=== PATIENT | female | born 1955 | race Hispanic/Latino ===

== ENCOUNTER 2020-10-27 10:37 | Inpatient (IN) | payer OTHER ==
[~2020-10-27] VITALS: Ht 160 cm; Wt 89.9 kg
[2020-10-27] MEDS ORDERED: SODIUM CHLORIDE 0.9% 1000ML 1,000 ML IV STA (11:34)
[2020-10-27] MEDS ORDERED: VANCOMYCIN 1GM/NS 250 ML 250 ML IV ONE (11:45)
[2020-10-27] MEDS ORDERED: PIPERACILLIN/TAZOBAC 3.375 GM in SODIUM CHLORIDE 0.9% 50ML 50 ML IV ONE (11:45)
[2020-10-27 11:47] LABS: BASOPHILS % 0.3 % (0.0-1.0); EOSINOPHILS % 0.2 % (0.0-6.0); HEMATOCRIT 26.4 % (34.2-44.1); HEMOGLOBIN 8.6 g/dL (12.0-16.0); LYMPHOCYTES # (AUTO) 0.8 (1.0-3.2); LYMPHOCYTES % 13.8 % (18.0-39.1); MEAN CORPUSCULAR HEMOGLOBIN 27.7 pg (28-32); MEAN CORPUSCULAR HGB CONC 32.6 g/dL (31-35); MEAN CORPUSCULAR VOLUME 84.9 fL (81-99); MONOCYTES # (AUTO) 0.4 (0.2-0.8); NEUTROPHILS # (AUTO) 4.6 (2.1-6.9); NEUTROPHILS % 78.4 % (38.7-80.0); PLATELET COUNT 186 x10e3/uL (140-360); RED BLOOD COUNT 3.11 x10e6/uL (3.6-5.1); RED CELL DISTRIBUTION WIDTH 13.9 % (11.7-14.4)
[2020-10-27 11:51] LABS: INR 1.21
[2020-10-27 12:00] LABS: ALANINE AMINOTRANSFERASE 28 IU/L (0-55); ALBUMIN 2.9 g/dL (3.5-5.0); ALBUMIN/GLOBULIN RATIO 0.6 (0.8-2.0); ALKALINE PHOSPHATASE 68 IU/L (40-150); ANION GAP 15.6 mmol/L (8-16); BLOOD UREA NITROGEN 12 mg/dL (7-26); BUN/CREATININE RATIO 17 (6-25); CARBON DIOXIDE 22 mmol/L (22-29); CHLORIDE 99 mmol/L (98-107); CREATINE KINASE 32 IU/L (29-168); CREATININE, SERUM 0.72 mg/dL (0.57-1.11); EST GLOMERULAR FILTRATION RATE > 60 ML/MIN (60-); GLUCOSE 190 mg/dL (74-118); MAGNESIUM 1.7 MG/DL (1.3-2.1); POTASSIUM 3.6 mmol/L (3.5-5.1); SODIUM 133 mmol/L (136-145)
[2020-10-27 12:13] LABS: B-TYPE NATRIURETIC PEPTIDE2 200.5 pg/mL (0-100)
[2020-10-27 12:20] LABS: CLARITY,URINE CLOUDY (CLEAR); COLOR,URINE YELLOW (YELLOW); LEUKOCYTE ESTERASE ,URINE TRACE (NEGATIVE); NITRITE,URINE NEGATIVE (NEGATIVE); PROTEIN,URINE DIPSTICK >=300 (NEGATIVE)
[2020-10-27 12:21] LABS: KETONES,URINE 1+ (NEGATIVE)
[2020-10-27 12:27] LABS: BACTERIA,URINE RARE /HPF; EPITHELIAL CELLS,URINE FEW /LPF
[2020-10-27] MEDS ORDERED: ONDANSETRON HCL INJ 2MG/ML 2ML 2 MG/ML VIAL IV STA (13:02)
[2020-10-27] MEDS ORDERED: MORPHINE SULFATE INJ 4 MG/ML INJ 1ML IV STA (13:02)
[2020-10-27] MEDS ORDERED: MORPHINE SULFATE INJ 4 MG/ML INJ 1ML ONE (13:18)
[2020-10-27] MEDS ORDERED: DEXTROSE 50% SYRINGE 50 ML IV PRN (13:30)
[2020-10-27 14:15] LABS: FREE THYROXINE INDEX 2.4702 (1.4-3.8); THYROID STIMULATING HORMONE 0.383 uIU/mL (0.350-4.940)
[2020-10-27] MEDS ORDERED: GLUCOPHAGE500 MG PO (15:33)
[2020-10-27 16:15] VITALS: BP 159/83
[2020-10-27] MEDS: SODIUM CHLORIDE 0.9% 1000ML 1,000 ML IV SCH (17:02)
[2020-10-27] MEDS: ONDANSETRON HCL INJ 2MG/ML 2ML 2 MG/ML VIAL IV PRN (17:08)
[2020-10-27] MEDS: PIPERACILLIN/TAZOBAC 3.375 GM in SODIUM CHLORIDE 0.9% 50ML 50 ML IV SCH ×2 (17:10→23:24)
[2020-10-27] MEDS ORDERED: PIPERACILLIN/TAZOBAC 3.375 GM VIAL ONE ×2 (17:14→23:25)
[2020-10-27] MEDS: INSULIN LISPRO 100 UNIT/1 ML 3ML VIAL SQ SCH ×2 (17:15→19:52)
[2020-10-27] MEDS ORDERED: SODIUM CHLORIDE 0.9% 50ML 50 ML ONE ×2 (17:15→23:25)
[2020-10-27] MEDS ORDERED: FUROSEMIDE INJ 10 MG/ML 2 ML VIAL IV ONE (18:30)
[2020-10-27] MEDS: IPRATROPIUM BROMIDE 0.02% 2.5 ML NEB NEB SCH (19:00)
[2020-10-27] MEDS: ACETAMINOPHEN 325 MG TAB PO PRN (19:25)
[2020-10-27 19:35] VITALS: BP 151/84
[2020-10-27 19:50] VITALS: BP 151/84
[2020-10-27] MEDS: ZOLPIDEM TARTRATE 5 MG TAB PO PRN (21:27)
[2020-10-27 21:59] LABS: CREATINE KINASE MB 0.3 ng/mL (0-5.0)
[2020-10-28] VITALS (8 sets, daily range): BP systolic 120–149; BP diastolic 70–101
[2020-10-28] MEDS: IPRATROPIUM BROMIDE 0.02% 2.5 ML NEB NEB SCH ×4 (01:05→19:00)
[2020-10-28] MEDS: SODIUM CHLORIDE 0.9% 1000ML 1,000 ML IV SCH ×2 (04:37→13:59)
[2020-10-28] MEDS ORDERED: SODIUM CHLORIDE 0.9% 50ML 50 ML ONE ×5 (05:23→23:35)
[2020-10-28] MEDS ORDERED: IOPAMIDOL 370 MG/ML 200 ML INFUS..BTL INJ ONE (05:23)
[2020-10-28] MEDS ORDERED: PIPERACILLIN/TAZOBAC 3.375 GM VIAL ONE ×4 (05:28→23:35)
[2020-10-28] MEDS: ACETAMINOPHEN 325 MG TAB PO PRN (05:33)
[2020-10-28] MEDS: PIPERACILLIN/TAZOBAC 3.375 GM in SODIUM CHLORIDE 0.9% 50ML 50 ML IV SCH ×4 (05:33→23:33)
[2020-10-28] MEDS: ONDANSETRON HCL INJ 2MG/ML 2ML 2 MG/ML VIAL IV PRN ×2 (05:40→16:44)
[2020-10-28 05:59] LABS: BASOPHILS % 0.3 % (0.0-1.0); HEMATOCRIT 23.1 % (34.2-44.1); HEMOGLOBIN 7.4 g/dL (12.0-16.0); LYMPHOCYTES # (AUTO) 0.7 (1.0-3.2); MEAN CORPUSCULAR HEMOGLOBIN 27.3 pg (28-32); MEAN CORPUSCULAR VOLUME 85.2 fL (81-99); MONOCYTES # (AUTO) 0.7 (0.2-0.8); MONOCYTES % 10.1 % (4.4-11.3); NEUTROPHILS # (AUTO) 5.1 (2.1-6.9); PLATELET COUNT 162 x10e3/uL (140-360); RED BLOOD COUNT 2.71 x10e6/uL (3.6-5.1); RED CELL DISTRIBUTION WIDTH 14.1 % (11.7-14.4)
[2020-10-28 06:52] LABS: ALANINE AMINOTRANSFERASE 27 IU/L (0-55); ALBUMIN 2.5 g/dL (3.5-5.0); ALBUMIN/GLOBULIN RATIO 0.5 (0.8-2.0); ALKALINE PHOSPHATASE 70 IU/L (40-150); ANION GAP 14.2 mmol/L (8-16); BLOOD UREA NITROGEN 11 mg/dL (7-26); BUN/CREATININE RATIO 13 (6-25); CALCIUM 7.4 mg/dL (8.4-10.2); CARBON DIOXIDE 22 mmol/L (22-29); CHLORIDE 98 mmol/L (98-107); CREATININE, SERUM 0.85 mg/dL (0.57-1.11); EST GLOMERULAR FILTRATION RATE > 60 ML/MIN (60-); GLUCOSE 141 mg/dL (74-118); POTASSIUM 3.2 mmol/L (3.5-5.1); SODIUM 131 mmol/L (136-145)
[2020-10-28 07:16] LABS: CREATINE KINASE MB 0.4 ng/mL (0-5.0)
[2020-10-28] MEDS: INSULIN LISPRO 100 UNIT/1 ML 3ML VIAL SQ SCH ×4 (08:30→20:06)
[2020-10-28] MEDS ORDERED: VANCOMYCIN 1GM/NS 250 ML 250 ML IV SCH (13:00)
[2020-10-28 15:36] LABS: CREATINE KINASE MB 0.5 ng/mL (0-5.0)
[2020-10-28 18:57] LABS: % IRON SATURATION 4 % (15-50); IRON 11 ug/dL (50-170); TOTAL IRON BINDING CAPACITY 245 ug/dL (261-478); TRANSFERRIN 175 mg/dL (180-382)
[2020-10-28] MEDS: ZOLPIDEM TARTRATE 5 MG TAB PO PRN (20:09)
[2020-10-29] VITALS (8 sets, daily range): BP systolic 120–162; BP diastolic 70–89
[2020-10-29] MEDS: IPRATROPIUM BROMIDE 0.02% 2.5 ML NEB NEB SCH ×4 (01:00→20:37)
[2020-10-29] MEDS ORDERED: PIPERACILLIN/TAZOBAC 3.375 GM VIAL ONE ×4 (05:17→22:34)
[2020-10-29] MEDS ORDERED: SODIUM CHLORIDE 0.9% 50ML 50 ML ONE ×4 (05:18→22:34)
[2020-10-29] MEDS: PIPERACILLIN/TAZOBAC 3.375 GM in SODIUM CHLORIDE 0.9% 50ML 50 ML IV SCH ×3 (05:37→17:28)
[2020-10-29 05:50] LABS: BLOOD UREA NITROGEN 14 mg/dL (7-26); BUN/CREATININE RATIO 17 (6-25); CALCIUM 7.2 mg/dL (8.4-10.2); CARBON DIOXIDE 21 mmol/L (22-29); CHLORIDE 99 mmol/L (98-107); CREATININE, SERUM 0.84 mg/dL (0.57-1.11); EST GLOMERULAR FILTRATION RATE > 60 ML/MIN (60-); GLUCOSE 77 mg/dL (74-118); SODIUM 133 mmol/L (136-145)
[2020-10-29 06:54] LABS: BASOPHILS % 0.2 % (0.0-1.0); EOSINOPHILS % 0.4 % (0.0-6.0); LYMPHOCYTES # (AUTO) 1.1 (1.0-3.2); LYMPHOCYTES % 13.7 % (18.0-39.1); MEAN CORPUSCULAR HGB CONC 32.5 g/dL (31-35); MEAN CORPUSCULAR VOLUME 86.2 fL (81-99); MONOCYTES # (AUTO) 0.9 (0.2-0.8); MONOCYTES % 10.5 % (4.4-11.3); NEUTROPHILS # (AUTO) 6.2 (2.1-6.9); NEUTROPHILS % 74.6 % (38.7-80.0); PLATELET COUNT 158 x10e3/uL (140-360); RED BLOOD COUNT 2.39 x10e6/uL (3.6-5.1); RED CELL DISTRIBUTION WIDTH 14.1 % (11.7-14.4)
[2020-10-29 07:14] LABS: HEMATOCRIT 20.6 % (34.2-44.1); HEMOGLOBIN 6.7 g/dL (12.0-16.0)
[2020-10-29] MEDS ORDERED: POTASSIUM CHLORIDE 20 MEQ TAB CR PO ONE (07:25)
[2020-10-29] MEDS: INSULIN LISPRO 100 UNIT/1 ML 3ML VIAL SQ SCH ×4 (07:26→20:10)
[2020-10-29] MEDS ORDERED: FUROSEMIDE INJ 10 MG/ML 2 ML VIAL IV ONE ×2 (07:35→21:00)
[2020-10-29] MEDS ORDERED: SODIUM CHLORIDE 0.9% 250ML 250 ML IV ONE (08:00)
[2020-10-29] MEDS: IRON SUCROSE 100 MG in SODIUM CHLORIDE 0.9% 100 ML 100 ML IV SCH (09:14)
[2020-10-29] MEDS: VANCOMYCIN 1GM/NS 250 ML 250 ML IV SCH (15:01)
[2020-10-29] MEDS: ACETAMINOPHEN 325 MG TAB PO PRN (17:15)
[2020-10-29] MEDS ORDERED: SODIUM CHLORIDE 0.9% 250ML 250 ML ONE (17:18)
[2020-10-30] VITALS (8 sets, daily range): BP systolic 127–149; BP diastolic 63–88
[2020-10-30] MEDS: IPRATROPIUM BROMIDE 0.02% 2.5 ML NEB NEB SCH ×4 (01:00→19:00)
[2020-10-30] MEDS: PIPERACILLIN/TAZOBAC 3.375 GM in SODIUM CHLORIDE 0.9% 50ML 50 ML IV SCH ×5 (01:14→23:35)
[2020-10-30] MEDS: PANTOPRAZOLE 40 MG 10ML VIAL IV SCH ×3 (01:51→23:35)
[2020-10-30] MEDS ORDERED: PIPERACILLIN/TAZOBAC 3.375 GM VIAL ONE ×4 (04:28→23:24)
[2020-10-30] MEDS ORDERED: SODIUM CHLORIDE 0.9% 50ML 50 ML ONE ×6 (04:29→23:25)
[2020-10-30 05:15] LABS: BASOPHILS % 0.3 % (0.0-1.0); EOSINOPHILS # (AUTO) 0.1 (0.0-0.4); EOSINOPHILS % 1.5 % (0.0-6.0); HEMATOCRIT 23.3 % (34.2-44.1); HEMOGLOBIN 7.7 g/dL (12.0-16.0); LYMPHOCYTES % 16.6 % (18.0-39.1); MEAN CORPUSCULAR HEMOGLOBIN 27.9 pg (28-32); MEAN CORPUSCULAR VOLUME 84.4 fL (81-99); MONOCYTES # (AUTO) 0.4 (0.2-0.8); MONOCYTES % 7.3 % (4.4-11.3); NEUTROPHILS # (AUTO) 4.4 (2.1-6.9); NEUTROPHILS % 73.6 % (38.7-80.0); PLATELET COUNT 163 x10e3/uL (140-360); RED BLOOD COUNT 2.76 x10e6/uL (3.6-5.1); RED CELL DISTRIBUTION WIDTH 14.1 % (11.7-14.4)
[2020-10-30 05:47] LABS: ANION GAP 14.2 mmol/L (8-16); BLOOD UREA NITROGEN 16 mg/dL (7-26); BUN/CREATININE RATIO 20 (6-25); CALCIUM 7.1 mg/dL (8.4-10.2); CARBON DIOXIDE 23 mmol/L (22-29); CHLORIDE 99 mmol/L (98-107); CREATININE, SERUM 0.79 mg/dL (0.57-1.11); EST GLOMERULAR FILTRATION RATE > 60 ML/MIN (60-); GLUCOSE 119 mg/dL (74-118); POTASSIUM 3.2 mmol/L (3.5-5.1); SODIUM 133 mmol/L (136-145)
[2020-10-30] MEDS: BENZONATATE 100 MG CAP PO PRN (06:40)
[2020-10-30] MEDS ORDERED: POTASSIUM CHLORIDE 20 MEQ TAB CR PO ONE (07:45)
[2020-10-30 07:50] LABS: CHOL/HDL RATIO 7.4 (3.0-3.6)
[2020-10-30] MEDS: INSULIN LISPRO 100 UNIT/1 ML 3ML VIAL SQ SCH ×4 (08:00→20:26)
[2020-10-30] MEDS: IRON SUCROSE 100 MG in SODIUM CHLORIDE 0.9% 100 ML 100 ML IV SCH (09:11)
[2020-10-30] MEDS: VANCOMYCIN 1GM/NS 250 ML 250 ML IV SCH (14:32)
[2020-10-30] MEDS: ACETAMINOPHEN 325 MG TAB PO PRN (19:28)
[2020-10-30] MEDS: ZOLPIDEM TARTRATE 5 MG TAB PO PRN (20:34)
[2020-10-30] MEDS: APIXABAN 5 MG TABLET PO SCH (22:06)
[2020-10-31] VITALS (8 sets, daily range): BP systolic 125–168; BP diastolic 59–91
[2020-10-31] MEDS: IPRATROPIUM BROMIDE 0.02% 2.5 ML NEB NEB SCH ×4 (01:00→19:30)
[2020-10-31] MEDS: ACETAMINOPHEN 325 MG TAB PO PRN (04:00)
[2020-10-31] MEDS ORDERED: PIPERACILLIN/TAZOBAC 3.375 GM VIAL ONE ×4 (04:50→23:54)
[2020-10-31] MEDS ORDERED: SODIUM CHLORIDE 0.9% 50ML 50 ML ONE ×4 (04:50→23:54)
[2020-10-31 05:06] LABS: BASOPHILS % 0.4 % (0.0-1.0); EOSINOPHILS # (AUTO) 0.1 (0.0-0.4); EOSINOPHILS % 2.1 % (0.0-6.0); HEMATOCRIT 24.1 % (34.2-44.1); HEMOGLOBIN 7.7 g/dL (12.0-16.0); LYMPHOCYTES % 18.9 % (18.0-39.1); MEAN CORPUSCULAR HEMOGLOBIN 27.3 pg (28-32); MEAN CORPUSCULAR VOLUME 85.5 fL (81-99); MONOCYTES # (AUTO) 0.4 (0.2-0.8); MONOCYTES % 7.3 % (4.4-11.3); NEUTROPHILS # (AUTO) 3.7 (2.1-6.9); NEUTROPHILS % 70.3 % (38.7-80.0); PLATELET COUNT 164 x10e3/uL (140-360); RED BLOOD COUNT 2.82 x10e6/uL (3.6-5.1); RED CELL DISTRIBUTION WIDTH 14.5 % (11.7-14.4)
[2020-10-31] MEDS: PIPERACILLIN/TAZOBAC 3.375 GM in SODIUM CHLORIDE 0.9% 50ML 50 ML IV SCH ×3 (05:22→18:08)
[2020-10-31 05:34] LABS: ALANINE AMINOTRANSFERASE 31 IU/L (0-55); ALBUMIN 2.1 g/dL (3.5-5.0); ALBUMIN/GLOBULIN RATIO 0.5 (0.8-2.0); ALKALINE PHOSPHATASE 105 IU/L (40-150); ANION GAP 13.8 mmol/L (8-16); BLOOD UREA NITROGEN 16 mg/dL (7-26); BUN/CREATININE RATIO 20 (6-25); CALCIUM 7.5 mg/dL (8.4-10.2); CARBON DIOXIDE 22 mmol/L (22-29); CHLORIDE 100 mmol/L (98-107); CREATININE, SERUM 0.81 mg/dL (0.57-1.11); EST GLOMERULAR FILTRATION RATE > 60 ML/MIN (60-); GLUCOSE 148 mg/dL (74-118); POTASSIUM 3.8 mmol/L (3.5-5.1); SODIUM 132 mmol/L (136-145)
[2020-10-31] MEDS: INSULIN LISPRO 100 UNIT/1 ML 3ML VIAL SQ SCH ×4 (08:30→21:00)
[2020-10-31] MEDS: APIXABAN 5 MG TABLET PO SCH (08:39)
[2020-10-31] MEDS: IRON SUCROSE 100 MG in SODIUM CHLORIDE 0.9% 100 ML 100 ML IV SCH (08:47)
[2020-10-31] MEDS: DRONEDARONE 400 MG TAB PO SCH ×2 (12:04→16:44)
[2020-10-31] MEDS: METOPROLOL TARTRATE 25 MG TAB PO SCH ×2 (12:05→21:24)
[2020-10-31] MEDS: PANTOPRAZOLE 40 MG 10ML VIAL IV SCH (12:13)
[2020-10-31] MEDS: BALSAM PERU/CASTOR OIL 60 GM OINT...G. TP SCH (14:37)
[2020-10-31] MEDS: VANCOMYCIN 1GM/NS 250 ML 250 ML IV SCH (15:59)
[2020-11-01] VITALS (7 sets, daily range): BP systolic 120–152; BP diastolic 62–79
[2020-11-01] MEDS: PANTOPRAZOLE 40 MG 10ML VIAL IV SCH ×2 (01:30→15:41)
[2020-11-01] MEDS: IPRATROPIUM BROMIDE 0.02% 2.5 ML NEB NEB SCH ×4 (01:30→19:00)
[2020-11-01] MEDS ORDERED: PIPERACILLIN/TAZOBAC 3.375 GM VIAL ONE ×4 (04:37→21:59)
[2020-11-01] MEDS ORDERED: SODIUM CHLORIDE 0.9% 50ML 50 ML ONE ×4 (04:37→22:00)
[2020-11-01] MEDS: METOPROLOL TARTRATE 25 MG TAB PO SCH ×3 (04:50→21:01)
[2020-11-01] MEDS: PIPERACILLIN/TAZOBAC 3.375 GM in SODIUM CHLORIDE 0.9% 50ML 50 ML IV SCH ×6 (04:50→23:20)
[2020-11-01 07:03] LABS: BASOPHILS % 0.6 % (0.0-1.0); EOSINOPHILS # (AUTO) 0.1 (0.0-0.4); EOSINOPHILS % 1.7 % (0.0-6.0); HEMATOCRIT 23.9 % (34.2-44.1); HEMOGLOBIN 7.6 g/dL (12.0-16.0); LYMPHOCYTES # (AUTO) 1.3 (1.0-3.2); LYMPHOCYTES % 23.8 % (18.0-39.1); MEAN CORPUSCULAR HEMOGLOBIN 27.3 pg (28-32); MEAN CORPUSCULAR HGB CONC 31.8 g/dL (31-35); MONOCYTES # (AUTO) 0.4 (0.2-0.8); MONOCYTES % 7.7 % (4.4-11.3); NEUTROPHILS # (AUTO) 3.5 (2.1-6.9); NEUTROPHILS % 64.9 % (38.7-80.0); PLATELET COUNT 212 x10e3/uL (140-360); RED BLOOD COUNT 2.78 x10e6/uL (3.6-5.1); RED CELL DISTRIBUTION WIDTH 14.5 % (11.7-14.4)
[2020-11-01] MEDS: INSULIN LISPRO 100 UNIT/1 ML 3ML VIAL SQ SCH ×4 (07:30→20:53)
[2020-11-01 07:33] LABS: ALANINE AMINOTRANSFERASE 32 IU/L (0-55); ALBUMIN 2.1 g/dL (3.5-5.0); ALBUMIN/GLOBULIN RATIO 0.4 (0.8-2.0); ALKALINE PHOSPHATASE 121 IU/L (40-150); ANION GAP 15.7 mmol/L (8-16); BLOOD UREA NITROGEN 16 mg/dL (7-26); BUN/CREATININE RATIO 18 (6-25); CALCIUM 7.5 mg/dL (8.4-10.2); CARBON DIOXIDE 23 mmol/L (22-29); CHLORIDE 101 mmol/L (98-107); EST GLOMERULAR FILTRATION RATE > 60 ML/MIN (60-); GLUCOSE 146 mg/dL (74-118); POTASSIUM 3.7 mmol/L (3.5-5.1); SODIUM 136 mmol/L (136-145)
[2020-11-01 07:59] LABS: EOSINOPHILS % (MANUAL) 4 % (0-7); LYMPHOCYTES % (MANUAL) 18 % (19-48); METAMYELOCYTES % (MANUAL) 1 % (0-0); MONOCYTES % (MANUAL) 8 % (3.4-9.0); NEUTROPHILS % (MANUAL) 68 % (40-74); PLATELET ESTIMATE ADEQUATE; PLATELET MORPHOLOGY COMMENT NORMAL; RBC MORPHOLOGY COMMENT NORMAL
[2020-11-01] MEDS: DRONEDARONE 400 MG TAB PO SCH ×2 (08:00→16:50)
[2020-11-01] MEDS: BALSAM PERU/CASTOR OIL 60 GM OINT...G. TP SCH (09:00)
[2020-11-01] MEDS: IRON SUCROSE 100 MG in SODIUM CHLORIDE 0.9% 100 ML 100 ML IV SCH (09:35)
[2020-11-01] MEDS ORDERED: SODIUM CHLORIDE 0.9% 250ML 250 ML ONE (09:35)
[2020-11-01] MEDS ORDERED: FENTANYL CITRATE/PF 100MCG/2 ML INJ ONE (12:55)
[2020-11-01] MEDS ORDERED: VANCOMYCIN 1GM/NS 250 ML 250 ML IV SCH (13:00)
[2020-11-01] MEDS ORDERED: DEXAMETHASONE SOD PHOS INJ 4 MG/ML VIAL ONE (13:10)
[2020-11-01] MEDS ORDERED: POVIDONE IODINE 0.05% 0.05 % ML PO ONE (13:10)
[2020-11-01] MEDS ORDERED: ONDANSETRON HCL INJ 2MG/ML 2ML 2 MG/ML VIAL ONE (13:10)
[2020-11-01] MEDS ORDERED: PROPOFOL IV EMULSION 10 MG/ML 20 ML VIAL ONE (13:10)
[2020-11-01] MEDS ORDERED: SEVOFLURANE INHAL SOLN 250 ML PEN BTL ONE (13:10)
[2020-11-01] MEDS: ACETAMINOPHEN 325 MG TAB PO PRN (14:42)
[2020-11-01] MEDS: VANCOMYCIN 1GM/NS 250 ML 250 ML IV SCH (16:52)
[2020-11-01] MEDS: HYDROCODONE/APAP 5MG-325MG TAB PO PRN (18:40)
[2020-11-02] VITALS (7 sets, daily range): BP systolic 106–136; BP diastolic 65–76
[2020-11-02] MEDS: IPRATROPIUM BROMIDE 0.02% 2.5 ML NEB NEB SCH ×4 (00:22→19:00)
[2020-11-02] MEDS ORDERED: BISACODYL 5 MG TAB EC PO ONE ×2 (01:00→02:00)
[2020-11-02] MEDS: PANTOPRAZOLE 40 MG 10ML VIAL IV SCH ×2 (01:13→12:13)
[2020-11-02] MEDS ORDERED: PIPERACILLIN/TAZOBAC 3.375 GM VIAL ONE ×4 (04:10→23:58)
[2020-11-02] MEDS ORDERED: SODIUM CHLORIDE 0.9% 50ML 50 ML ONE ×4 (04:10→23:58)
[2020-11-02] MEDS: VANCOMYCIN 1GM/NS 250 ML 250 ML IV SCH ×2 (05:00→16:31)
[2020-11-02] MEDS: METOPROLOL TARTRATE 25 MG TAB PO SCH ×3 (05:34→22:00)
[2020-11-02] MEDS: PIPERACILLIN/TAZOBAC 3.375 GM in SODIUM CHLORIDE 0.9% 50ML 50 ML IV SCH ×3 (06:00→18:28)
[2020-11-02] MEDS ORDERED: CITRATE OF MAGNESIA 300ML BOTTLE PO ONE (08:00)
[2020-11-02] MEDS: BALSAM PERU/CASTOR OIL 60 GM OINT...G. TP SCH (09:00)
[2020-11-02] MEDS: DRONEDARONE 400 MG TAB PO SCH ×2 (09:06→18:28)
[2020-11-02] MEDS: INSULIN LISPRO 100 UNIT/1 ML 3ML VIAL SQ SCH ×4 (09:10→21:00)
[2020-11-02] MEDS: ACETAMINOPHEN 325 MG TAB PO PRN (09:10)
[2020-11-02] MEDS: IRON SUCROSE 100 MG in SODIUM CHLORIDE 0.9% 100 ML 100 ML IV SCH (10:23)
[2020-11-02] MEDS: HYDROCODONE/APAP 5MG-325MG TAB PO PRN (14:35)
[2020-11-03] VITALS (9 sets, daily range): BP systolic 120–177; BP diastolic 54–90
[2020-11-03] MEDS: ACETAMINOPHEN 325 MG TAB PO PRN
[2020-11-03] MEDS: IPRATROPIUM BROMIDE 0.02% 2.5 ML NEB NEB SCH ×4 (01:00→19:00)
[2020-11-03] MEDS: PANTOPRAZOLE 40 MG 10ML VIAL IV SCH ×2 (01:43→13:26)
[2020-11-03] MEDS ORDERED: PIPERACILLIN/TAZOBAC 3.375 GM VIAL ONE (05:13)
[2020-11-03] MEDS ORDERED: SODIUM CHLORIDE 0.9% 50ML 50 ML ONE (05:13)
[2020-11-03] MEDS: VANCOMYCIN 1GM/NS 250 ML 250 ML IV SCH (05:44)
[2020-11-03] MEDS: METOPROLOL TARTRATE 25 MG TAB PO SCH ×3 (05:45→22:26)
[2020-11-03 06:08] LABS: BASOPHILS % 0.6 % (0.0-1.0); EOSINOPHILS # (AUTO) 0.2 (0.0-0.4); EOSINOPHILS % 3.5 % (0.0-6.0); HEMATOCRIT 25.6 % (34.2-44.1); LYMPHOCYTES # (AUTO) 1.7 (1.0-3.2); LYMPHOCYTES % 25.4 % (18.0-39.1); MEAN CORPUSCULAR HEMOGLOBIN 27.7 pg (28-32); MEAN CORPUSCULAR HGB CONC 31.3 g/dL (31-35); MEAN CORPUSCULAR VOLUME 88.6 fL (81-99); MONOCYTES # (AUTO) 0.6 (0.2-0.8); MONOCYTES % 9.6 % (4.4-11.3); NEUTROPHILS # (AUTO) 3.9 (2.1-6.9); NEUTROPHILS % 59.4 % (38.7-80.0); PLATELET COUNT 266 x10e3/uL (140-360); RED BLOOD COUNT 2.89 x10e6/uL (3.6-5.1); RED CELL DISTRIBUTION WIDTH 14.9 % (11.7-14.4)
[2020-11-03] MEDS: PIPERACILLIN/TAZOBAC 3.375 GM in SODIUM CHLORIDE 0.9% 50ML 50 ML IV SCH ×4 (06:24→11:22)
[2020-11-03 06:38] LABS: ALBUMIN 2.2 g/dL (3.5-5.0); ALBUMIN/GLOBULIN RATIO 0.4 (0.8-2.0); CALCIUM 7.9 mg/dL (8.4-10.2); CREATININE, SERUM 0.98 mg/dL (0.57-1.11)
[2020-11-03] MEDS: INSULIN LISPRO 100 UNIT/1 ML 3ML VIAL SQ SCH ×4 (07:30→22:17)
[2020-11-03] MEDS: ONDANSETRON HCL INJ 2MG/ML 2ML 2 MG/ML VIAL IV PRN (08:35)
[2020-11-03] MEDS: DRONEDARONE 400 MG TAB PO SCH ×2 (08:35→16:26)
[2020-11-03] MEDS: BALSAM PERU/CASTOR OIL 60 GM OINT...G. TP SCH (08:35)
[2020-11-03] MEDS: HYDROCODONE/APAP 5MG-325MG TAB PO PRN ×2 (08:36→20:20)
[2020-11-03 08:52] LABS: BAND NEUTROPHILS % (MANUAL) 2 %; EOSINOPHILS % (MANUAL) 2 % (0-7); LYMPHOCYTES % (MANUAL) 16 % (19-48); MONOCYTES % (MANUAL) 6 % (3.4-9.0); NEUTROPHILS % (MANUAL) 74 % (40-74)
[2020-11-03] MEDS: IRON SUCROSE 100 MG in SODIUM CHLORIDE 0.9% 100 ML 100 ML IV SCH (09:53)
[2020-11-03] MEDS: CEFEPIME HCL 1GM 1 GM in SODIUM CHLORIDE 0.9% 50ML 50 ML IV SCH ×2 (13:26→20:20)
[2020-11-03] MEDS ORDERED: CEFEPIME HCL 1 GM VIAL IV SCH (14:00)
[2020-11-04] VITALS (7 sets, daily range): BP systolic 130–180; BP diastolic 73–98
[2020-11-04] MEDS: IPRATROPIUM BROMIDE 0.02% 2.5 ML NEB NEB SCH ×4 (01:00→19:41)
[2020-11-04] MEDS: PANTOPRAZOLE 40 MG 10ML VIAL IV SCH ×2 (01:23→15:13)
[2020-11-04] MEDS: CEFEPIME HCL 1GM 1 GM in SODIUM CHLORIDE 0.9% 50ML 50 ML IV SCH ×3 (05:50→22:22)
[2020-11-04] MEDS: METOPROLOL TARTRATE 25 MG TAB PO SCH ×3 (05:51→22:23)
[2020-11-04] MEDS: INSULIN LISPRO 100 UNIT/1 ML 3ML VIAL SQ SCH ×4 (07:30→23:52)
[2020-11-04] MEDS: BALSAM PERU/CASTOR OIL 60 GM OINT...G. TP SCH (09:38)
[2020-11-04] MEDS: DRONEDARONE 400 MG TAB PO SCH ×2 (09:38→16:11)
[2020-11-04] MEDS: IRON SUCROSE 100 MG in SODIUM CHLORIDE 0.9% 100 ML 100 ML IV SCH (09:38)
[2020-11-04] MEDS ORDERED: CLONIDINE HCL 0.1 MG TAB PO ONE (12:30)
[2020-11-04] MEDS ORDERED: SODIUM CHLORIDE 0.9% 100 ML ONE (17:51)
[2020-11-04] MEDS ORDERED: IOPAMIDOL 370 MG/ML 200 ML INFUS..BTL INJ ONE (17:51)
[2020-11-04] MEDS: ACETAMINOPHEN 325 MG TAB PO PRN (23:51)
[2020-11-05] MEDS: IPRATROPIUM BROMIDE 0.02% 2.5 ML NEB NEB SCH ×4 (01:00→19:40)
[2020-11-05] MEDS: PANTOPRAZOLE 40 MG 10ML VIAL IV SCH ×2 (01:47→14:16)
[2020-11-05 03:58] VITALS: BP 159/77
[2020-11-05 05:08] LABS: BASOPHILS % 0.7 % (0.0-1.0); EOSINOPHILS # (AUTO) 0.1 (0.0-0.4); EOSINOPHILS % 2.2 % (0.0-6.0); HEMATOCRIT 27.3 % (34.2-44.1); HEMOGLOBIN 8.5 g/dL (12.0-16.0); LYMPHOCYTES # (AUTO) 1.2 (1.0-3.2); LYMPHOCYTES % 21.6 % (18.0-39.1); MEAN CORPUSCULAR HEMOGLOBIN 27.2 pg (28-32); MEAN CORPUSCULAR HGB CONC 31.1 g/dL (31-35); MEAN CORPUSCULAR VOLUME 87.5 fL (81-99); MONOCYTES # (AUTO) 0.5 (0.2-0.8); MONOCYTES % 8.4 % (4.4-11.3); NEUTROPHILS # (AUTO) 3.6 (2.1-6.9); NEUTROPHILS % 66.6 % (38.7-80.0); PLATELET COUNT 240 x10e3/uL (140-360); RED BLOOD COUNT 3.12 x10e6/uL (3.6-5.1)
[2020-11-05 05:37] LABS: ANION GAP 13.1 mmol/L (8-16); BLOOD UREA NITROGEN 13 mg/dL (7-26); BUN/CREATININE RATIO 16 (6-25); CALCIUM 8.2 mg/dL (8.4-10.2); CARBON DIOXIDE 23 mmol/L (22-29); CHLORIDE 104 mmol/L (98-107); CREATININE, SERUM 0.81 mg/dL (0.57-1.11); EST GLOMERULAR FILTRATION RATE > 60 ML/MIN (60-); GLUCOSE 138 mg/dL (74-118); POTASSIUM 4.1 mmol/L (3.5-5.1); SODIUM 136 mmol/L (136-145)
[2020-11-05] MEDS: CEFEPIME HCL 1GM 1 GM in SODIUM CHLORIDE 0.9% 50ML 50 ML IV SCH ×3 (06:10→21:42)
[2020-11-05] MEDS: METOPROLOL TARTRATE 25 MG TAB PO SCH ×3 (06:10→16:20)
[2020-11-05] MEDS ORDERED: CHLORASEPTIC SPRAY 177 ML BTL MM PRN (06:30)
[2020-11-05 07:43] VITALS: BP 180/84
[2020-11-05] MEDS: BALSAM PERU/CASTOR OIL 60 GM OINT...G. TP SCH (09:29)
[2020-11-05] MEDS: INSULIN LISPRO 100 UNIT/1 ML 3ML VIAL SQ SCH ×4 (09:29→20:43)
[2020-11-05] MEDS: DRONEDARONE 400 MG TAB PO SCH ×2 (09:29→16:20)
[2020-11-05 11:27] VITALS: BP 147/94
[2020-11-05] MEDS: LOSARTAN POTASSIUM 100 MG TAB PO SCH (12:07)
[2020-11-05 15:35] VITALS: BP 180/85
[2020-11-05 20:28] VITALS: BP 200/86
[2020-11-05 21:00] VITALS: BP 200/86
[2020-11-05] MEDS: CLONIDINE HCL 0.1 MG TAB PO PRN (21:42)
[2020-11-06] MEDS: HYDROCODONE/APAP 5MG-325MG TAB PO PRN (00:55)
[2020-11-06] MEDS: PANTOPRAZOLE 40 MG 10ML VIAL IV SCH ×2 (00:55→14:05)
[2020-11-06] MEDS: IPRATROPIUM BROMIDE 0.02% 2.5 ML NEB NEB SCH ×4 (01:05→19:00)
[2020-11-06] MEDS: CEFEPIME HCL 1GM 1 GM in SODIUM CHLORIDE 0.9% 50ML 50 ML IV SCH ×3 (05:30→21:02)
[2020-11-06] MEDS: METOPROLOL TARTRATE 25 MG TAB PO SCH ×2 (08:13→17:39)
[2020-11-06] MEDS: DRONEDARONE 400 MG TAB PO SCH ×2 (08:13→17:40)
[2020-11-06] MEDS: LOSARTAN POTASSIUM 100 MG TAB PO SCH (08:13)
[2020-11-06] MEDS: INSULIN LISPRO 100 UNIT/1 ML 3ML VIAL SQ SCH ×4 (08:14→20:06)
[2020-11-06] MEDS: BALSAM PERU/CASTOR OIL 60 GM OINT...G. TP SCH (08:19)
[2020-11-06 08:28] VITALS: BP 174/83
[2020-11-06 08:48] VITALS: BP 174/83
[2020-11-06 11:54] VITALS: BP 136/76
[2020-11-06 16:16] VITALS: BP 139/77
[2020-11-06] MEDS: ACETAMINOPHEN 325 MG TAB PO PRN (17:43)
[2020-11-06 20:43] VITALS: BP 151/70
[2020-11-07] MEDS: HYDROCODONE/APAP 5MG-325MG TAB PO PRN ×2 (00:10→21:25)
[2020-11-07] MEDS: PANTOPRAZOLE 40 MG 10ML VIAL IV SCH ×2 (00:40→16:33)
[2020-11-07] MEDS: IPRATROPIUM BROMIDE 0.02% 2.5 ML NEB NEB SCH ×4 (01:00→20:19)
[2020-11-07] MEDS: CLONIDINE HCL 0.1 MG TAB PO PRN ×2 (04:23→21:25)
[2020-11-07] MEDS: CEFEPIME HCL 1GM 1 GM in SODIUM CHLORIDE 0.9% 50ML 50 ML IV SCH ×3 (05:02→21:11)
[2020-11-07] MEDS: INSULIN LISPRO 100 UNIT/1 ML 3ML VIAL SQ SCH ×4 (07:30→21:00)
[2020-11-07] MEDS ORDERED: FUROSEMIDE INJ 10 MG/ML 2 ML VIAL IV ONE (08:00)
[2020-11-07 08:09] VITALS: BP 136/82
[2020-11-07 08:32] VITALS: BP 136/82
[2020-11-07] MEDS: METOPROLOL TARTRATE 25 MG TAB PO SCH ×2 (09:27→16:33)
[2020-11-07] MEDS: LOSARTAN POTASSIUM 100 MG TAB PO SCH (09:27)
[2020-11-07] MEDS: DRONEDARONE 400 MG TAB PO SCH ×2 (09:27→16:33)
[2020-11-07] MEDS: BALSAM PERU/CASTOR OIL 60 GM OINT...G. TP SCH (09:32)
[2020-11-07 11:50] VITALS: BP 185/84
[2020-11-07 15:37] VITALS: BP 152/77
[2020-11-07] MEDS: INSULIN GLARGINE 100 UNITS/ML VIAL SQ SCH (21:00)
[2020-11-07 21:20] VITALS: BP 189/73
[2020-11-08] MEDS: IPRATROPIUM BROMIDE 0.02% 2.5 ML NEB NEB SCH ×4 (01:00→19:45)
[2020-11-08] MEDS: PANTOPRAZOLE 40 MG 10ML VIAL IV SCH ×2 (01:30→13:30)
[2020-11-08] MEDS: CEFEPIME HCL 1GM 1 GM in SODIUM CHLORIDE 0.9% 50ML 50 ML IV SCH ×3 (05:56→22:34)
[2020-11-08] MEDS: INSULIN LISPRO 100 UNIT/1 ML 3ML VIAL SQ SCH ×4 (07:30→22:33)
[2020-11-08 07:50] LABS: BASOPHILS % 0.4 % (0.0-1.0); EOSINOPHILS # (AUTO) 0.2 (0.0-0.4); EOSINOPHILS % 2.9 % (0.0-6.0); HEMATOCRIT 26.9 % (34.2-44.1); HEMOGLOBIN 8.6 g/dL (12.0-16.0); LYMPHOCYTES % 19.5 % (18.0-39.1); MEAN CORPUSCULAR HEMOGLOBIN 27.4 pg (28-32); MEAN CORPUSCULAR VOLUME 85.7 fL (81-99); MONOCYTES # (AUTO) 0.5 (0.2-0.8); MONOCYTES % 8.8 % (4.4-11.3); NEUTROPHILS # (AUTO) 3.6 (2.1-6.9); NEUTROPHILS % 67.8 % (38.7-80.0); PLATELET COUNT 226 x10e3/uL (140-360); RED BLOOD COUNT 3.14 x10e6/uL (3.6-5.1); RED CELL DISTRIBUTION WIDTH 15.3 % (11.7-14.4)
[2020-11-08] MEDS: DRONEDARONE 400 MG TAB PO SCH ×2 (08:00→17:00)
[2020-11-08 08:19] LABS: ANION GAP 15.5 mmol/L (8-16); BLOOD UREA NITROGEN 14 mg/dL (7-26); BUN/CREATININE RATIO 18 (6-25); CALCIUM 8.6 mg/dL (8.4-10.2); CARBON DIOXIDE 25 mmol/L (22-29); CHLORIDE 103 mmol/L (98-107); EST GLOMERULAR FILTRATION RATE > 60 ML/MIN (60-); GLUCOSE 164 mg/dL (74-118); POTASSIUM 3.5 mmol/L (3.5-5.1); SODIUM 140 mmol/L (136-145)
[2020-11-08 08:26] VITALS: BP 179/77
[2020-11-08] MEDS: LOSARTAN POTASSIUM 100 MG TAB PO SCH (09:00)
[2020-11-08] MEDS: METOPROLOL TARTRATE 25 MG TAB PO SCH ×2 (09:00→17:00)
[2020-11-08] MEDS: BALSAM PERU/CASTOR OIL 60 GM OINT...G. TP SCH (09:00)
[2020-11-08] MEDS ORDERED: BUPIVACAINE HCL 0.5% INJ 30 ML VIAL INJ ONE (09:54)
[2020-11-08] MEDS ORDERED: ONDANSETRON HCL INJ 2MG/ML 2ML 2 MG/ML VIAL ONE (12:46)
[2020-11-08] MEDS ORDERED: LIDOCAINE HCL 2% LOCAL INJ 5 ML SDV VIAL INJ ONE (12:46)
[2020-11-08] MEDS ORDERED: SEVOFLURANE INHAL SOLN 250 ML PEN BTL ONE (12:46)
[2020-11-08] MEDS ORDERED: PROPOFOL IV EMULSION 10 MG/ML 20 ML VIAL ONE (12:46)
[2020-11-08] MEDS ORDERED: POVIDONE IODINE 0.05% 0.05 % ML PO ONE (12:46)
[2020-11-08] MEDS ORDERED: DEXAMETHASONE SOD PHOS INJ 4 MG/ML VIAL ONE (12:46)
[2020-11-08 12:48] VITALS: BP 183/82
[2020-11-08] MEDS ORDERED: FENTANYL CITRATE/PF 100MCG/2 ML INJ ONE (13:21)
[2020-11-08] MEDS ORDERED: MIDAZOLAM HCL 2 MG/2 ML VIAL ONE (13:21)
[2020-11-08] MEDS ORDERED: SODIUM CHLORIDE 0.9% 50ML 50 ML ONE (13:53)
[2020-11-08] MEDS: HYDROCODONE/APAP 5MG-325MG TAB PO PRN ×2 (14:35→22:50)
[2020-11-08 15:13] VITALS: BP 172/71
[2020-11-08 16:06] VITALS: BP 179/77
[2020-11-08 20:00] VITALS: BP 153/75
[2020-11-08] MEDS: INSULIN GLARGINE 100 UNITS/ML VIAL SQ SCH (22:34)
[2020-11-09] VITALS (9 sets, daily range): BP systolic 149–186; BP diastolic 66–87
[2020-11-09] MEDS: IPRATROPIUM BROMIDE 0.02% 2.5 ML NEB NEB SCH ×4 (01:02→19:05)
[2020-11-09] MEDS: PANTOPRAZOLE 40 MG 10ML VIAL IV SCH ×2 (02:33→15:00)
[2020-11-09 05:44] LABS: BASOPHILS % 0.3 % (0.0-1.0); EOSINOPHILS # (AUTO) 0.2 (0.0-0.4); EOSINOPHILS % 3.3 % (0.0-6.0); HEMATOCRIT 27.4 % (34.2-44.1); HEMOGLOBIN 8.8 g/dL (12.0-16.0); LYMPHOCYTES # (AUTO) 1.4 (1.0-3.2); LYMPHOCYTES % 21.9 % (18.0-39.1); MEAN CORPUSCULAR HEMOGLOBIN 27.8 pg (28-32); MEAN CORPUSCULAR HGB CONC 32.1 g/dL (31-35); MEAN CORPUSCULAR VOLUME 86.4 fL (81-99); MONOCYTES # (AUTO) 0.6 (0.2-0.8); MONOCYTES % 9.4 % (4.4-11.3); NEUTROPHILS # (AUTO) 4.1 (2.1-6.9); NEUTROPHILS % 64.6 % (38.7-80.0); PLATELET COUNT 231 x10e3/uL (140-360); RED BLOOD COUNT 3.17 x10e6/uL (3.6-5.1)
[2020-11-09] MEDS: CEFEPIME HCL 1GM 1 GM in SODIUM CHLORIDE 0.9% 50ML 50 ML IV SCH ×3 (05:49→22:44)
[2020-11-09 06:00] LABS: ALANINE AMINOTRANSFERASE 11 IU/L (0-55); ALBUMIN 2.3 g/dL (3.5-5.0); ALBUMIN/GLOBULIN RATIO 0.5 (0.8-2.0); ALKALINE PHOSPHATASE 55 IU/L (40-150); ANION GAP 13.7 mmol/L (8-16); BLOOD UREA NITROGEN 18 mg/dL (7-26); BUN/CREATININE RATIO 22 (6-25); CALCIUM 8.4 mg/dL (8.4-10.2); CARBON DIOXIDE 26 mmol/L (22-29); CHLORIDE 104 mmol/L (98-107); CREATININE, SERUM 0.81 mg/dL (0.57-1.11); EST GLOMERULAR FILTRATION RATE > 60 ML/MIN (60-); GLUCOSE 140 mg/dL (74-118); POTASSIUM 3.7 mmol/L (3.5-5.1); SODIUM 140 mmol/L (136-145)
[2020-11-09] MEDS: BENZONATATE 100 MG CAP PO PRN ×3 (06:04→22:45)
[2020-11-09] MEDS: INSULIN LISPRO 100 UNIT/1 ML 3ML VIAL SQ SCH ×4 (07:30→21:00)
[2020-11-09] MEDS: BALSAM PERU/CASTOR OIL 60 GM OINT...G. TP SCH (07:40)
[2020-11-09] MEDS: DRONEDARONE 400 MG TAB PO SCH ×2 (08:00→17:00)
[2020-11-09] MEDS: LOSARTAN POTASSIUM 100 MG TAB PO SCH (08:33)
[2020-11-09] MEDS: METOPROLOL TARTRATE 25 MG TAB PO SCH ×2 (08:33→17:00)
[2020-11-09] MEDS: AMLODIPINE BESYLATE 10 MG TAB PO SCH (15:15)
[2020-11-09] MEDS: HYDROCODONE/APAP 5MG-325MG TAB PO PRN (16:36)
[2020-11-09] MEDS ORDERED: SODIUM CHLORIDE 0.9% 250ML 250 ML ONE (21:17)
[2020-11-09] MEDS: INSULIN GLARGINE 100 UNITS/ML VIAL SQ SCH (23:42)
[2020-11-10] VITALS (9 sets, daily range): BP systolic 129–179; BP diastolic 54–99
[2020-11-10] MEDS: IPRATROPIUM BROMIDE 0.02% 2.5 ML NEB NEB SCH ×4 (01:00→19:55)
[2020-11-10] MEDS: PANTOPRAZOLE 40 MG 10ML VIAL IV SCH ×3 (01:18→23:43)
[2020-11-10] MEDS: ACETAMINOPHEN 325 MG TAB PO PRN ×2 (04:53→23:44)
[2020-11-10] MEDS: CEFEPIME HCL 1GM 1 GM in SODIUM CHLORIDE 0.9% 50ML 50 ML IV SCH ×3 (06:33→21:10)
[2020-11-10] MEDS: INSULIN LISPRO 100 UNIT/1 ML 3ML VIAL SQ SCH ×4 (07:30→21:06)
[2020-11-10] MEDS: DRONEDARONE 400 MG TAB PO SCH ×2 (08:00→17:00)
[2020-11-10] MEDS ORDERED: FUROSEMIDE INJ 10 MG/ML 2 ML VIAL IV ONE (08:15)
[2020-11-10] MEDS ORDERED: FUROSEMIDE INJ 10 MG/ML 2 ML VIAL ONE (08:45)
[2020-11-10] MEDS: METOPROLOL TARTRATE 25 MG TAB PO SCH ×2 (09:00→17:00)
[2020-11-10] MEDS: AMLODIPINE BESYLATE 10 MG TAB PO SCH (09:00)
[2020-11-10] MEDS: LOSARTAN POTASSIUM 100 MG TAB PO SCH (09:00)
[2020-11-10] MEDS: BALSAM PERU/CASTOR OIL 60 GM OINT...G. TP SCH (09:00)
[2020-11-10] MEDS: INSULIN GLARGINE 100 UNITS/ML VIAL SQ SCH (21:06)
[2020-11-10] MEDS: BENZONATATE 100 MG CAP PO PRN (21:09)
[2020-11-11] VITALS (9 sets, daily range): BP systolic 110–183; BP diastolic 73–110
[2020-11-11] MEDS: IPRATROPIUM BROMIDE 0.02% 2.5 ML NEB NEB SCH ×4 (00:50→19:30)
[2020-11-11] MEDS: CEFEPIME HCL 1GM 1 GM in SODIUM CHLORIDE 0.9% 50ML 50 ML IV SCH ×3 (05:08→21:10)
[2020-11-11] MEDS: BENZONATATE 100 MG CAP PO PRN ×3 (05:17→21:10)
[2020-11-11] MEDS: INSULIN LISPRO 100 UNIT/1 ML 3ML VIAL SQ SCH ×4 (07:30→21:10)
[2020-11-11] MEDS: METOPROLOL TARTRATE 25 MG TAB PO SCH ×2 (08:39→17:22)
[2020-11-11] MEDS: LOSARTAN POTASSIUM 100 MG TAB PO SCH (08:39)
[2020-11-11] MEDS: DRONEDARONE 400 MG TAB PO SCH ×2 (08:39→17:23)
[2020-11-11] MEDS: BALSAM PERU/CASTOR OIL 60 GM OINT...G. TP SCH (08:40)
[2020-11-11] MEDS: AMLODIPINE BESYLATE 10 MG TAB PO SCH (08:40)
[2020-11-11] MEDS ORDERED: FUROSEMIDE INJ 10 MG/ML 4 ML VIAL IV SCH (09:00)
[2020-11-11] MEDS: HYDROCHLOROTHIAZIDE 25 MG TAB PO SCH (10:07)
[2020-11-11] MEDS: PANTOPRAZOLE 40 MG 10ML VIAL IV SCH (14:31)
[2020-11-11] MEDS: INSULIN GLARGINE 100 UNITS/ML VIAL SQ SCH (21:10)
[2020-11-11] MEDS: CLONIDINE HCL 0.1 MG TAB PO PRN (21:10)
[2020-11-12] VITALS (8 sets, daily range): BP systolic 137–181; BP diastolic 62–77
[2020-11-12] MEDS: PANTOPRAZOLE 40 MG 10ML VIAL IV SCH ×2 (00:48→13:38)
[2020-11-12] MEDS: IPRATROPIUM BROMIDE 0.02% 2.5 ML NEB NEB SCH ×4 (01:15→19:46)
[2020-11-12] MEDS: ACETAMINOPHEN 325 MG TAB PO PRN (04:24)
[2020-11-12] MEDS: BENZONATATE 100 MG CAP PO PRN ×3 (04:24→21:47)
[2020-11-12 05:50] LABS: ALANINE AMINOTRANSFERASE 14 IU/L (0-55); ALBUMIN 2.2 g/dL (3.5-5.0); ALBUMIN/GLOBULIN RATIO 0.5 (0.8-2.0); ALKALINE PHOSPHATASE 54 IU/L (40-150); ANION GAP 12.2 mmol/L (8-16); BLOOD UREA NITROGEN 15 mg/dL (7-26); BUN/CREATININE RATIO 18 (6-25); CALCIUM 8.1 mg/dL (8.4-10.2); CARBON DIOXIDE 29 mmol/L (22-29); CHLORIDE 102 mmol/L (98-107); CREATININE, SERUM 0.85 mg/dL (0.57-1.11); EST GLOMERULAR FILTRATION RATE > 60 ML/MIN (60-); GLUCOSE 125 mg/dL (74-118); POTASSIUM 3.2 mmol/L (3.5-5.1); SODIUM 140 mmol/L (136-145)
[2020-11-12] MEDS: CEFEPIME HCL 1GM 1 GM in SODIUM CHLORIDE 0.9% 50ML 50 ML IV SCH ×3 (06:30→21:47)
[2020-11-12] MEDS ORDERED: FUROSEMIDE INJ 10 MG/ML 4 ML VIAL IV ONE (07:35)
[2020-11-12] MEDS: HYDROCHLOROTHIAZIDE 25 MG TAB PO SCH (08:11)
[2020-11-12] MEDS: LOSARTAN POTASSIUM 100 MG TAB PO SCH (08:11)
[2020-11-12] MEDS: DRONEDARONE 400 MG TAB PO SCH ×2 (08:11→17:13)
[2020-11-12] MEDS: METOPROLOL TARTRATE 25 MG TAB PO SCH ×2 (08:12→17:12)
[2020-11-12] MEDS: BALSAM PERU/CASTOR OIL 60 GM OINT...G. TP SCH (08:12)
[2020-11-12] MEDS: AMLODIPINE BESYLATE 10 MG TAB PO SCH (08:12)
[2020-11-12] MEDS ORDERED: POTASSIUM CHLORIDE 20 MEQ TAB CR PO ONE (08:15)
[2020-11-12] MEDS: INSULIN LISPRO 100 UNIT/1 ML 3ML VIAL SQ SCH ×4 (08:15→21:48)
[2020-11-12] MEDS: HYDROCODONE/APAP 5MG-325MG TAB PO PRN (20:11)
[2020-11-12] MEDS: INSULIN GLARGINE 100 UNITS/ML VIAL SQ SCH (21:48)
[2020-11-13] VITALS: BP 131/66
[2020-11-13] MEDS: IPRATROPIUM BROMIDE 0.02% 2.5 ML NEB NEB SCH ×3 (01:00→13:51)
[2020-11-13] MEDS: PANTOPRAZOLE 40 MG 10ML VIAL IV SCH ×2 (01:47→13:30)
[2020-11-13 04:00] VITALS: BP 141/58
[2020-11-13 05:53] LABS: BASOPHILS % 0.9 % (0.0-1.0); EOSINOPHILS # (AUTO) 0.2 (0.0-0.4); EOSINOPHILS % 4.8 % (0.0-6.0); HEMATOCRIT 28.3 % (34.2-44.1); HEMOGLOBIN 8.8 g/dL (12.0-16.0); LYMPHOCYTES # (AUTO) 1.3 (1.0-3.2); LYMPHOCYTES % 30.6 % (18.0-39.1); MEAN CORPUSCULAR HEMOGLOBIN 27.1 pg (28-32); MEAN CORPUSCULAR HGB CONC 31.1 g/dL (31-35); MEAN CORPUSCULAR VOLUME 87.1 fL (81-99); MONOCYTES # (AUTO) 0.5 (0.2-0.8); MONOCYTES % 11.8 % (4.4-11.3); NEUTROPHILS # (AUTO) 2.2 (2.1-6.9); NEUTROPHILS % 51.7 % (38.7-80.0); PLATELET COUNT 190 x10e3/uL (140-360); RED BLOOD COUNT 3.25 x10e6/uL (3.6-5.1); RED CELL DISTRIBUTION WIDTH 15.4 % (11.7-14.4)
[2020-11-13 06:10] LABS: ANION GAP 14.3 mmol/L (8-16); BLOOD UREA NITROGEN 21 mg/dL (7-26); BUN/CREATININE RATIO 23 (6-25); CALCIUM 8.2 mg/dL (8.4-10.2); CARBON DIOXIDE 29 mmol/L (22-29); CHLORIDE 101 mmol/L (98-107); CREATININE, SERUM 0.92 mg/dL (0.57-1.11); EST GLOMERULAR FILTRATION RATE > 60 ML/MIN (60-); GLUCOSE 109 mg/dL (74-118); POTASSIUM 3.3 mmol/L (3.5-5.1); SODIUM 141 mmol/L (136-145)
[2020-11-13] MEDS: CEFEPIME HCL 1GM 1 GM in SODIUM CHLORIDE 0.9% 50ML 50 ML IV SCH (07:00)
[2020-11-13 07:53] VITALS: BP 159/66
[2020-11-13 08:00] VITALS: BP 159/66
[2020-11-13] MEDS ORDERED: POTASSIUM CHLORIDE 10MEQ EA PO ONE (08:10)
[2020-11-13] MEDS: ACETAMINOPHEN 325 MG TAB PO PRN (09:00)
[2020-11-13] MEDS: BENZONATATE 100 MG CAP PO PRN (09:00)
[2020-11-13] MEDS: DRONEDARONE 400 MG TAB PO SCH (09:33)
[2020-11-13] MEDS: AMLODIPINE BESYLATE 10 MG TAB PO SCH (09:34)
[2020-11-13] MEDS: BALSAM PERU/CASTOR OIL 60 GM OINT...G. TP SCH (09:34)
[2020-11-13] MEDS: LOSARTAN POTASSIUM 100 MG TAB PO SCH (09:34)
[2020-11-13] MEDS: METOPROLOL TARTRATE 25 MG TAB PO SCH (09:34)
[2020-11-13] MEDS: HYDROCHLOROTHIAZIDE 25 MG TAB PO SCH (09:34)
[2020-11-13] MEDS: INSULIN LISPRO 100 UNIT/1 ML 3ML VIAL SQ SCH ×2 (09:35→11:16)
[2020-11-13] MEDS ORDERED: LANTUS 3ML100 UNITS/ SQ (11:53)
[2020-11-13] MEDS ORDERED: HUMALOG MI100 UNIT/2 SQ (11:54)
[2020-11-13 12:00] VITALS: BP 134/67
== END 2020-11-13 15:55 | disposition home health service (06) | DRG 239 ==
LOC: ER 11:49 → ERHOLD 13:28 → MED/SURG2 14:54
PROVIDERS: ADMIT Family Medicine; ATTEND Family Medicine
PROC: 30233N1 Transfusion of Nonautologous Red Blood Cells into Peripheral Vein, Percutaneous Approach (ICD-10-PCS; 2020-10-29)
PROC: 0Y6M0ZB Detachment at Right Foot, Partial 2nd Ray, Open Approach (ICD-10-PCS; 2020-11-01)
PROC: 0Y9M0ZZ Drainage of Right Foot, Open Approach (ICD-10-PCS; principal; 2020-11-01 11:30)
PROC: 02HV33Z Insertion of Infusion Device into Superior Vena Cava, Percutaneous Approach (ICD-10-PCS; 2020-11-03)
PROC: 0HRMXK3 Replacement of Right Foot Skin with Nonautologous Tissue Substitute, Full Thickness, External Approach (ICD-10-PCS; 2020-11-08)
PROC: 0Y6M0ZC Detachment at Right Foot, Partial 3rd Ray, Open Approach (ICD-10-PCS; 2020-11-08)
PROC: 0KBV0ZZ Excision of Right Foot Muscle, Open Approach (ICD-10-PCS; 2020-11-08)
PROC: 0Y6M0ZD Detachment at Right Foot, Partial 4th Ray, Open Approach (ICD-10-PCS; 2020-11-08)
DX: E11.52 Type 2 diabetes mellitus with diabetic peripheral angiopathy with gangrene (principal); J96.01 Acute respiratory failure with hypoxia; L03.115 Cellulitis of right lower limb; M86.171 Other acute osteomyelitis, right ankle and foot; N39.0 Urinary tract infection, site not specified; L02.611 Cutaneous abscess of right foot; E44.1 Mild protein-calorie malnutrition; K92.2 Gastrointestinal hemorrhage, unspecified; B94.8 Sequelae of other specified infectious and parasitic diseases; E11.69 Type 2 diabetes mellitus with other specified complication; I10 Essential (primary) hypertension; E78.5 Hyperlipidemia, unspecified; Z87.891 Personal history of nicotine dependence; Z83.3 Family history of diabetes mellitus; D63.8 Anemia in other chronic diseases classified elsewhere; E87.6 Hypokalemia; E83.52 Hypercalcemia; K80.20 Calculus of gallbladder without cholecystitis without obstruction; B96.20 Unspecified Escherichia coli [E. coli] as the cause of diseases classified elsewhere; K29.70 Gastritis, unspecified, without bleeding; I48.0 Paroxysmal atrial fibrillation; B96.89 Other specified bacterial agents as the cause of diseases classified elsewhere; E66.9 Obesity, unspecified; Z20.822 Contact with and (suspected) exposure to COVID-19; Z68.35 Body mass index [BMI] 35.0-35.9, adult; D50.9 Iron deficiency anemia, unspecified; K59.00 Constipation, unspecified
CPT/HCPCS: 36415; 71045; 71260; 73706; 76000; 76700; 80048; 80053; 80061; 80202; 81001; 82270; 82550; 82553; 82607; 82746; 82948; 83036; 83540; 83605; 83735; 83880; 84436; 84443; 84466; 84479; 84484; 85025; 85610; 85730; 86850; 86900; 86920; 87040; 87071; 87075; 87086; 87186; 87205; 88304; 88305; 88311; 93005; 93306; 93925; 94640; 96372; 97139; 97606; 99251; 99284; J0692; J1100; J1756; J1815; J1940; J2001; J2250; J2270; J2405; J2543; J3010; J3370; J7030; J7050; P9016; Q9967; U0002; V2790